=== PATIENT | female | born 1950 | race Caucasian/White ===

== ENCOUNTER 2022-01-31 13:40 | Outpatient (CLI) | payer MEDICARE, SELFPAY ==
--- NOTE | ~2022-01-31 | XR_ITS ---
EXAMINATION: XR hip BI wo pelvis INDICATION: Bilateral hip pain TECHNIQUE: Two views of each hip are obtained. COMPARISON: None available FINDINGS: Bone alignment is normal. There is no fracture. The soft tissues are unremarkable. IMPRESSION: 1. Unremarkable hip radiographs. Reviewed, dictated and finalized at location B.
--- NOTE | ~2022-01-31 | XR_ITS ---
EXAMINATION: XR ankle LT min 3V DATE: 01/31/2022 14:14 INDICATION: Left ankle pain TECHNIQUE: Anteroposterior, lateral, mortise, and additional oblique view of the ankle were obtained. COMPARISON: None. FINDINGS: Bone alignment is normal. There is no fracture or osteochondral lesion. 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 Posterior and plantar calcaneal enthesophytes are noted. IMPRESSION: 1. No acute osseous abnormality. Reviewed, dictated and finalized at location B.
== END 2022-01-31 13:41 | disposition home or self-care (01) ==
LOC: ANHIMG 13:54
PROVIDERS: PCP Emergency Medicine; Visit Provider Emergency Medicine
DX: M25.551 Pain in right hip (principal); M25.552 Pain in left hip; M25.572 Pain in left ankle and joints of left foot; Z13.820 Encounter for screening for osteoporosis
CPT/HCPCS: 73521; 73610

== ENCOUNTER → 2022-04-28 10:28 | Outpatient (CLI) | payer MEDICARE, SELFPAY ==
--- NOTE | ~2022-04-28 | MM_ITS ---
EXAMINATION: MM screening ambika BI w kenny HISTORY: Screening mammogram TECHNIQUE: Craniocaudal and mediolateral oblique 3-D tomosynthesis images were obtained and synthetic 2-D images were generated. CAD analysis was submitted and interpreted. COMPARISON: No prior mammogram is available for comparison at this institution. BREAST PARENCHYMAL COMPOSITION: The breasts are almost entirely fatty. FINDINGS 4 mm asymmetric circumscribed opacity in the lower mid right breast. Diagnostic right mammog [place] and right breast ultrasound examination are recommended Otherwise there is no evidence of suspicious mass, calcification, or architectural distortion to sugg est malignancy in either breast. There has been no suspicious interval change. IMPRESSION: 1. 4 mm circumscribed opacity at 6:00, right breast 2. Diagnostic right mammogram and right breast ultrasound examination are recommended BI-RADS Category 0: Incomplete: Needs additional imaging evaluation. Reviewed, dictated and finalized at location A. CH STEWARD IMPRESSION: 1. 4 mm circumscribed opacity at 6:00, right breast 2. Diagnostic right mammogram and right breast ultrasound examination are recom mended BI-RADS Category 0: Incomplete: Needs additional imaging evaluation.
== END ==
PROVIDERS: PCP Emergency Medicine; Visit Provider Emergency Medicine
DX: Z12.31 Encounter for screening mammogram for malignant neoplasm of breast (principal); R92.8 Other abnormal and inconclusive findings on diagnostic imaging of breast
CPT/HCPCS: 77063; 77067

== ENCOUNTER → 2022-05-21 09:44 | Outpatient (CLI) | payer MEDICARE, SELFPAY ==
--- NOTE | ~2022-05-21 | MMUS_ITS ---
EXAMINATION: MM diagnostic ambika RT w kenny, US breast RT limited HISTORY: Follow-up right breast mass TECHNIQUE: Additional 3-D tomosynthesis images of the right breast were performed and synthetic 2-D i mages were generated. CAD analysis was submitted and interpreted. High resolution Limited right breas t ultrasound was performed. COMPARISON: 04/28/2022 BREAST PARENCHYMAL COMPOSITION: Breast composition is almost entirely fatty. FINDINGS: MAMMOGRAPHIC FINDINGS: There is a persistent 4 mm mass in the lower central aspect of the right breast. No suspicious calcif ications or architectural distortion. ULTRASOUND: Limited right breast ultrasound: At C6-7 o'clock, 4 cm from the nipple, there is an oval hypoechoic 4 mm mass with posterior shadowing, parallel orientation and no internal vascularity. IMPRESSION: 1. Right breast mass at C6-7 o'clock, 4 cm from the nipple measuring 4 mm. 2. Ultrasound-guided right breast biopsy recommended. BI-RADS category 4, suspicious findings. Reviewed, dictated and finalized at location B. COACH IMPRESSION: 1. Right breast mass at C6-7 o'clock, 4 cm from the nipple measuring 4 mm. 2. Ultrasound-guided right breast biopsy recommended. BI-RADS category 4, suspicious findings.
== END ==
PROVIDERS: PCP Emergency Medicine; Visit Provider Emergency Medicine
DX: R92.8 Other abnormal and inconclusive findings on diagnostic imaging of breast (principal)
CPT/HCPCS: 76642; 77061; 77065; G0279

== ENCOUNTER 2022-06-16 10:19 | Outpatient (CLI) | payer MEDICARE, SELFPAY ==
--- NOTE | ~2022-06-16 | US_ITS ---
US breast RT limited DATE: 06/16/2022 11:14 INDICATION: Patient presented for biopsy of right breast mass TECHNIQUE: Real-time imaging targeted at 6 7 7:00 4 cm from nipple COMPARISON: 05/2022 Limited right breast ultrasound and 05/21/2022 diagnostic right mammogram FINDINGS: Approximately 2.6 x 4 mm circumscribed mammographic opacity in the lower outer left breast on 05/21/2022 diagnostic mammogram corresponds to an approximately 2.4 x 4.7 x 4.1 mm parallel circum scribed hypoechoic lesion on 06/16/2022 targeted ultrasound examination at 6 7 7:00 4 cm from nipple. On both the mammogram and ultrasound the margins are smooth. There is homogeneous low density mammogr aphic attenuation and homogeneous solid sonographic echogenicity. No internal vascularity or posterio r shadowing is noted. The mammographic and sonographic features are most suggestive of benign process . The patient was not aware of any recent mammogram examinations that could be compared to the current studies. I recommended 6 month follow-up diagnostic right mammogram and targeted right breast ultrasound based upon the benign mammographic and ultrasound features. The patient agreed to return for follow-up rosy ging in 6 months. IMPRESSION: BI-RADS Category 3: Probably benign finding Recommendation: 6 month diagnostic right mammogram and targeted right breast 6 7 7:00 ultrasound exam ination Reviewed, dictated and finalized at Location A. Reviewed, dictated and finalized at location A. BPM ARCHITECT IMPRESSION: BI-RADS Category 3: Probably benign finding Recommendation: 6 month diagnostic right mammogram and targeted right breast 6 7 7:00 ultrasound examination
== END 2022-06-16 10:20 | disposition home or self-care (01) ==
PROVIDERS: PCP Emergency Medicine; Visit Provider Emergency Medicine
DX: R92.8 Other abnormal and inconclusive findings on diagnostic imaging of breast (principal)
CPT/HCPCS: 76642

== ENCOUNTER → 2023-07-09 10:51 | Outpatient (CLI) | payer MEDICARE, SELFPAY ==
--- NOTE | ~2023-07-09 | MMUS_ITS ---
EXAMINATION: MM diagnostic ambika BI w kenny, US breast RT limited HISTORY: Follow-up right breast mass TECHNIQUE: Additional 3-D tomosynthesis images of the right breast were performed and synthetic 2-D i mages were generated. CAD analysis was submitted and interpreted. High resolution Limited right breas t ultrasound was performed. COMPARISON: Comparison to multiple prior studies sequentially, with oldest reviewed study dated 04/09. BREAST PARENCHYMAL COMPOSITION: Not dense: There are scattered areas of fibroglandular density. FINDINGS: MAMMOGRAPHIC FINDINGS: Stable small circumscribed mass lower central right breast, middle third. The left breast is stable w ithout evidence for malignancy. ULTRASOUND: Limited right breast ultrasound: Stable oval circumscribed parallel oriented hypoechoic mass at 6-7:0 0, 4 cm from the nipple measuring 4 mm. No significant interval change. IMPRESSION: 1. Stable likely benign right breast mass at C6-7 o'clock, 4 cm from the nipple measuring 4 mm. 2. Recommend 6 month follow-up Limited right breast ultrasound BI-RADS category 3, probably benign findings. Reviewed, dictated and finalized at location A. RUMENT AND ELECTRICAL TECHNICIAN IMPRESSION: 1. Stable likely benign right breast mass at C6-7 o'clock, 4 cm from the nipple measuring 4 mm. 2. Recommend 6 month follow-up Limited right breast ultrasound BI-RADS category 3, probably benign findings.
--- NOTE | ~2023-07-09 | XR_ITS ---
XR chest 2V DATE: 07/09/2023 11:56 INDICATION: Tobacco use TECHNIQUE: 2 views COMPARISON: None FINDINGS: Borderline heart size. No hilar or mediastinal enlargement. Left upper lobe calcified pulmo nary granulomas. No pulmonary infiltrate or consolidation, pleural effusion or pulmonary vascular con gestion or pneumothorax is detected. Diffuse osteopenia. Degenerative spurring of the lower thoracic spine. IMPRESSION: Borderline heart size; no active pulmonary disease Reviewed, dictated and finalized at location L. RY PLANT OPERATOR
== END ==
PROVIDERS: PCP Emergency Medicine; Visit Provider Emergency Medicine
DX: R92.8 Other abnormal and inconclusive findings on diagnostic imaging of breast (principal)
CPT/HCPCS: 71046; 76642; 77062; 77066; G0279

== ENCOUNTER 2023-11-23 11:42 | Emergency (ER) | payer MEDICARE, SELFPAY ==
[2023-11-23] VITALS (9 sets, daily range): BP systolic 132–168; BP diastolic 61–86; PULSE 61–82; RESP 16–24; TEMP 36.4–36.7; O2SAT 97–99
--- NOTE | ~2023-11-23 | XR_ITS ---
EXAMINATION: XR chest 2V DATE: 11/23/2023 12:27 INDICATION: Shortness of breath. Intermittent chest pain. TECHNIQUE: frontal and lateral views of the chest were obtained. COMPARISON: Chest radiograph dated 07/09/2023 FINDINGS: Calcified nodule at the lateral left upper lung zone consistent with old granulomatous disease. No ot her airspace opacities, pulmonary edema, pleural effusion or pneumothorax. The cardiomediastinal silh ouette is normal. Moderate thoracic spondylosis. IMPRESSION: 1. No acute cardiopulmonary disease. Reviewed, dictated and finalized at location A.
--- NOTE | ~2023-11-23 | CT_ITS ---
CTA chest PE protocol Ordering provider: Yuliana Villasenor MD History: 73 years Female with . sob, elevated d dimer . Comparison: None. Technique: CT angiogram chest was performed following timed intravenous injection of contrast. Thin s lice axial images and reformatted coronal images were obtained. Three dimensional reformatted images of the chest were also obtained using a [employer] workstation. Radiation reduction technique utilized. D LP L is 814.50 mGy. Findings: PULMONARY ARTERIES: No pulmonary embolus. VISUALIZED THORACIC INLET: Normal. MEDIASTINUM: Aorta/coronary arteries: Mild atheromatous disease. Heart/other: The heart is not enlarged. Lymph nodes: No mediastinal or hilar adenopathy. LUNGS: Tiny nodule seen in the right apical area measuring 5 mm. Tiny nodule in the right lower lobe measuri ng 3 mm. Atelectatic changes in the lingula. No pulmonary nodules or masses. No infiltrates or effusi ons. No pneumothorax. VISUALIZED UPPER ABDOMEN: Left adrenal mass measuring 1.7 x 3 cm. Further evaluation advised. Otherwi se, the visualized upper abdomen is normal. MUSCULOSKELETAL: Soft tissues: The superficial soft tissues are normal. Bones: Age appropriate degenerative changes of the spine. Hemangioma in T10. IMPRESSION: 1. No pulmonary embolism. 2. Tiny nodule in the right apical area. [address] follow-up advised. 3. Left adrenal mass. Further evaluation advised. Reviewed, dictated and finalized at location A.
--- NOTE | 2023-11-23 11:55 | ECG_ITS ---
Test Date: 2023-11-23 11:59:51 Measurements Intervals [place] Rate: 77 P: 57 MN: 167 QRS: 26 QRSD: 88 T: 63 QT: 398 QTc: 452 Interpretive Statements SINUS RHYTHM NONSPECIFIC ST SEGMENT ABNORMALITY ABNORMAL ECG No previous ECG available for comparison Electronically Signed On 11-23-2023 15:27:48 CDT by Alex Ramirez M.D.
[2023-11-23 12:32] LABS: Basophils Absolute Auto 0.1 K/mm3 (0.0-0.1); Basophils Percent Auto 0.9 % (0.2-1.2); Eosinophils Absolute Auto 0.4 K/mm3 (0-0.3); Eosinophils Percent Auto 4.4 % (0-4.4); Hematocrit 39.4 % (37.0-47.0); Hemoglobin 13.3 g/dL (12.0-15.0); Immature Granulocyte Absolute 0.05 K/mm3 (0.00-0.031); Immature Granulocyte Percent A 0.5 % (0-0.5); Lymphocytes Absolute Auto 1.23 K/mm3 (0.9-3.2); Lymphocytes Percent Auto 12.2 % (18.3-44.2); Mean Corpuscular HGB Conc 33.8 g/dl (32-36); Mean Corpuscular Hemoglobin 29.5 pg (26-34); Mean Corpuscular Volume 87.4 fl (80-100); Mean Platelet Volume 10.9 fl (7.4-10.4); Monocytes Absolute Auto 0.6 K/mm3 (0.1-0.6); Neutrophils Absolute Auto 7.7 K/mm3 (1.3-6.7); Platelet Count Result 343 k/mm3 (150-375); Red Blood Count 4.51 M/mm3 (4.2-5.4); Red Cell Distribution Width 14.1 % (11.5-14.5); White Blood Count 10.1 K/mm3 (4.5-10.0)
[2023-11-23 12:44] LABS: Alanine Aminotransferase 31 U/L (6-35); Alkaline Phosphatase 124 U/L (38-126); Anion Gap 6 mmol/L (4-12); Aspartate Amino Transferase 30 U/L (14-36); Bilirubin,Total 0.7 mg/dL (0.2-1.3); Blood Urea Nitrogen 14 mg/dL (7-17); Calcium 8.7 mg/dL (8.4-10.2); Carbon Dioxide 27 mmol/L (22-30); Chloride 107 mmol/L (98-107); Estimated CRCL calculation 68 ml/min; Estimated Glomerular Filt Rate > 60; Glucose 148 mg/dL (65-110); Potassium 3.2 mmol/L (3.4-5.0); Sodium 140 mmol/L (137-145)
[2023-11-23] MEDS: POTASSIUM CHLORIDE 20 MEQ ER TABLET 40 MEQ PO (12:55)
[2023-11-23] MEDS: predniSONE 20 MG TABLET 60 MG PO (12:56)
[2023-11-23 13:07] LABS: INR 1.1; Prothrombin Time 14.6 Seconds (11.1-14.7)
[2023-11-23 13:08] LABS: Partial Thromboplastin Time 28.2 Seconds (22.3-36.8)
[2023-11-23 13:09] LABS: Alveolar/Arterial O2 Gradient 17.9 mmHg; Base Excess ABG 2.6 mEq/l (+/-2.0); Carboxyhemoglobin 2.8 % THb (0-2.0); Fractional Inspired Oxygen 21 %; HCO3 ABG 26.6 mEq/l (22.0-26.0); Methemoglobin ABG 0.2 %THb (0-1.5); Oxygen Content ABG 19.3 %vol (16.0-22.0); Oxygen Saturation ABG 96.8 % (95.0-100.0); Oxyhemoglobin 94.2 % THb (90.0-100.0); PCO2 ABG 39.1 mmHg (35.0-45.0); PO2 FiO2 Ratio Arterial Blood 4.05 %; Reduced Hemoglobin 2.8 %THb (0-5.0); Total Hemoglobin 14.5 g/dL (12.0-18.0); pH ABG 7.451 (7.350-7.450)
[2023-11-23] MEDS: IPRATROPIUM 0.5 MG/ALBUTEROL SULFATE 2.5 MG AMPUL.NEB 3 ML INHALATION (13:16)
[2023-11-23 13:20] LABS: Device ROOM AIR; Modified Allen's Test Pass; Site Drawn RIGHT RADIAL
--- NOTE | 2023-11-23 13:21 | ED.SOB ---
HPI - SOB/Dyspnea General Chief Complaint: Shortness of Breath/Dyspnea Stated Complaint: SOB x 2 weeks Time Seen by Provider: 11/23/23 12:08 Source: patient, RN notes reviewed and old records reviewed Mode of arrival: ambulatory Limitations: no limitations History of Present Illness HPI Narrative: This is a 73 year old female with history of COPD who presents for evaluation of shortness of breath. She states she has been having difficulty breathing for 2 weeks. She reports nonproductive cough with wheezing and congestion. She also reports shortness of breath working with exertion. She reports feeling like she was going to pass out walking the bathroom at her home due to sob. She denies vomiting, diarrhea, fever, chills. She does reports bilateral leg swelling. Denies heart disease. She reports having normal cardiac evaluation 4 years ago. Related Data Allergies Allergy/AdvReac Type Severity Reaction Status Date / Time No Known Allergies Allergy Mild Unverified 07/04/19 16:14 Review of Systems Constitutional: Constitutional: Denies fever(s) and Reports weakness Cardiovascular: Cardiovascular: Reports chest pain, Denies syncope, Denies rapid heart rate, Denies irregular heart rhythm, Reports leg edema and Reports dyspnea Respiratory: Respiratory: Reports chest congestion, Reports cough, Denies hemoptysis, Denies excessive phlegm production, Reports dyspnea and Reports wheezing Gastrointestinal: Gastrointestinal: Denies abdominal pain, Denies hematochezia, Denies diarrhea and Denies vomiting Genitourinary: Genitourinary: Denies hematuria and Denies dysuria Musculoskeletal: Musculoskeletal: Reports arthralgias, Denies joint swelling, Denies loss of height and Denies muscle weakness Neurologic: Denies syncope, Denies focal weakness and Denies weakness [facility] Past Medical History Medical History (Updated 11/23/23 @ 16:13 by Yuliana Villasenor MD) Emphysema/COPD Hypertension Surgical History Surgical History (Updated 11/23/23 @ 13:23 by Yuliana Villasenor MD) H/O: hysterectomy History of cholecystectomy Family History Family History (System 07/04/19 @ 16:14 by Alyce Armenta) Mother Family history of heart disease in male family member before age 55 Social History Social History (Updated 11/23/23 @ 13:23 by Yuliana Villasenor MD) Smoking packs per day: 0.5 Smoking cigarettes per day: 10.0 Smoking status: Current every day smoker Alcohol intake: current Exam Const: General: no acute distress and alert Nutritional Appearance: well nourished Orientation/consciousness: patient oriented x3 HENMT: Head: normal to inspection Face and sinus: normal facial exam Eyes: EOM: EOMs intact bilaterally Chest: Chest palpation & inspection: normal inspection of the chest Resp: Effort & Inspection: normal respiratory effort Auscultation: wheezes Other: able to speak in complete sentences Cardio: Rate: regular rate Rhythm: regular rhythm Heart sounds: no murmurs GI: GI Palp: Yes Soft to palpation, No Tenderness to palpation present (GI), No Guarding due to palpation present (GI) and No Rigid due to palpation Auscultation: normal bowel sounds Skin: General skin exam: normal color Wounds: no wounds Neuro: General: patient oriented x3, moves all extremities and CN's II-XI intact bilaterally Extrem: General: edema Psych: Mental Status: mental status grossly normal Affect: normal affect Attitude: cooperative Course Reevaluation(s) Reevaluation #1: Patient states she feels much better. She was able to ambulate without any difficulty. Pulse ox was 96% with ambulation. Patient understands and she is comfortable with discharge with oral prednisone and albuterol inhaler. Date: 11/23/23 Time: 16:11 Vital Signs Vital signs: Vital Signs Temperature 97.6 F 11/23/23 11:55 Pulse Rate 78 11/23/23 11:55 Respiratory Rate 24 H 11/23/23 11:55 Blood Pressure 168/76 H 11/23/23 11:55
[2023-11-23 13:34] LABS: NT Pro B Type Natriuretic Pept 721 pg/mL (19.9-100); Troponin I < 0.012 ng/mL (0.000-0.034)
[2023-11-23 14:28] LABS: D Dimer 0.78 ug/mL (<0.48)
== END 2023-11-23 16:29 | disposition home or self-care (01) ==
PROVIDERS: Emergency Medicine; Emergency Provider General Practice; PCP Emergency Medicine
DX: J44.1 Chronic obstructive pulmonary disease with (acute) exacerbation (principal); I10 Essential (primary) hypertension
CPT/HCPCS: 36415; 36600; 71046; 71275; 80053; 82375; 82805; 83050; 83880; 84484; 85025; 85380; 85610; 85730; 93005; 94640; 99284; A9270; J7512; Q9967

== ENCOUNTER 2025-01-16 12:37 | Outpatient (CLI) | payer MEDICARE, SELFPAY ==
--- NOTE | ~2025-01-16 | XR_ITS ---
XR hand LT min 3V 01/16/2025 15:19 Indication: Wheezing and hand pain Procedure: 3 views left hand Comparison: No prior studies for comparison. Findings: There is polyarticular osteoarthritis of the left wrist and hands. No fracture, subluxation or dislocation. Osteopenia. No focal soft tissue abnormality. No foreign bodies. Impression: 1: No acute bone or joint abnormality. 2: Polyarticular osteoarthritis. Reviewed, dictated and finalized at location A. Impression: 1: No acute bone or joint abnormality. 2: Polyarticular osteoarthritis.
--- NOTE | ~2025-01-16 | XR_ITS ---
CHEST RADIOGRAPH, PA AND LATERAL CLINICAL HISTORY: Wheezing, hand PAIN . COMPARISON: 11/23/2023 TECHNIQUE: PA and lateral views of the chest. FINDINGS The cardiomediastinal silhouette is unremarkable. Redemonstration of two calcified granulomas within the left upper lobe. The remainder of the lungs are clear. IMPRESSION: No focal infiltrate or effusion. Reviewed, dictated and finalized at location A.
--- NOTE | ~2025-01-16 | XR_ITS ---
HISTORY: WHEEZING,HAND PAIN COMPARISON: None TECHNIQUE: 3 views of the cervical spine were performed FINDINGS: Visualization of the cervical spine to the inferior endplate of T2 (on swimmer's view). Normal curvature of the cervical spine is preserved. No prevertebral soft tissue swelling is appreciated. No acute compression fracture is noted. The dens is equidistant between the pillars, without asymmetry. Air column within the trachea is midline. The visualized portions of the bilateral upper lung ybarra are unremarkable. IMPRESSION: Unremarkable plain film evaluation of the cervical spine, as detailed above. Reviewed, dictated and finalized at location A.
--- NOTE | ~2025-01-16 | XR_ITS ---
XR lumbar spine 2-3V 01/16/2025 15:19 Indication: Back pain. Procedure: 3 views lumbar spine Comparison: No prior studies for comparison. Findings: There is facet hypertrophy at L4-5 and L5-S1. There is mild endplate degenerative change at L4-5. No acute fracture, subluxation or dislocation. Normal lumbar alignment. Pedicles intact. Sacra l foramen are symmetric. There are cholecystectomy clips. Impression: 1: Mild lumbar spondylosis. Reviewed, dictated and finalized at location A. Impression: 1: Mild lumbar spondylosis.
--- NOTE | ~2025-01-16 | XR_ITS ---
XR hip LT min 2V 01/16/2025 15:19 Indication: Left hip pain Procedure: 2 views left hip Comparison: 01/31/2022 Findings: There is anatomic alignment. No fracture, subluxation or dislocation. Normal mineralization . Impression: 1: No significant bone or joint abnormality. Reviewed, dictated and finalized at location A. Impression: 1: No significant bone or joint abnormality.
--- NOTE | ~2025-01-16 | XR_ITS ---
XR forearm LT 2V, XR wrist LT min 3V 01/16/2025 15:19 Indication: Left arm pain Procedure: 2 views left forearm and 4 views left wrist Comparison: No prior studies for comparison. Findings: No acute fracture, subluxation or dislocation. Left elbow in anatomic alignment. There is p olyarticular osteoarthritis of the wrist involving the triscaphe and first carpal metacarpal joints. No significant focal soft tissue abnormality. No foreign bodies. Impression: 1: No acute bone or joint abnormality. 2: Polyarticular osteoarthritis of the left wrist. Reviewed, dictated and finalized at location A. Impression: 1: No acute bone or joint abnormality. 2: Polyarticular osteoarthritis of the left wrist. Impression: 1: No acute bone or joint abnormality. 2: Polyarticular osteoarthritis of the left wrist.
--- NOTE | 2025-01-16 13:55 | CY_PTH ---
PATIENT: Martha Wright LOC: [facility] U#:[id number] AGE/SX: 74/F ROOM: RE01/16/[address]: Pawan Gomes MD : 1950 BED: DIS: 01/16/2025 SPEC #: [id number] RECD: 01/17/25 07:17 STATUS: BRYANT REAgustin #: [id number] [place]: 01/16/25 13:[address]: Pawan Gomes DEPT: [facility] Cytology RECD BY: Gayla Barrett Tissues: A - Urine Procedures: Cytopathology Cytospin
[2025-01-16 14:35] LABS: Hematocrit 45.3 % (37.0-47.0); Hemoglobin 14.5 g/dL (12.0-15.0); Mean Corpuscular HGB Conc 32.0 g/dl (32-36); Mean Corpuscular Hemoglobin 28.8 pg (26-34); Mean Corpuscular Volume 89.9 fl (80-100); Platelet Count Result 375 k/mm3 (150-375); Red Blood Count 5.04 M/mm3 (4.2-5.4); White Blood Count 17.2 K/mm3 (4.5-10.0)
[2025-01-16 14:59] LABS: Alanine Aminotransferase 33 U/L (6-35); Albumin Level 4.2 g/dL (3.5-5.1); Alkaline Phosphatase 133 U/L (38-126); Anion Gap 9 mmol/L (4-12); Aspartate Amino Transferase 32 U/L (14-36); Bilirubin,Total 0.7 mg/dL (0.2-1.3); Blood Urea Nitrogen 23 mg/dL (7-17); Calcium 8.8 mg/dL (8.4-10.2); Carbon Dioxide 24 mmol/L (22-30); Chloride 103 mmol/L (98-107); Cholesterol 229 mg/dL (0-200); Estimated Glomerular Filt Rate > 60; Glucose 119 mg/dL (65-110); HDL Direct 65 mg/dL; Potassium 4.4 mmol/L (3.4-5.0); Sodium 136 mmol/L (137-145); Total Protein 7.8 g/dL (6.3-8.2); Triglycerides 98 mg/dL (<150)
[2025-01-16 15:04] LABS: NT Pro B Type Natriuretic Pept 381 pg/mL (19.9-100)
[2025-01-16 15:13] LABS: Free T4 Free Thyroxine 1.02 ng/dL (0.78-2.19)
[2025-01-16 15:26] LABS: Thyroid Stimulating Hormone 2.430 uIU/mL (0.465-4.680)
[2025-01-16 15:48] LABS: Add Urine Microscopic? YES; Appearance Urine Clear (Clear); Glucose Urine UA Negative (Negative); Leukocyte Esterase Ur Negative LEU/UL (Negative); Nitrate Urine Negative (Negative); Non Pathogenic Casts 0-2; Specific Grav Ur 1.019 (1.001-1.035)
[2025-01-16 16:38] LABS: MALB Creatinine Ratio 42.9 mg/g (0-30)
== END 2025-01-16 12:38 | disposition home or self-care (01) ==
PROVIDERS: PCP Emergency Medicine; Visit Provider Emergency Medicine
DX: E78.5 Hyperlipidemia, unspecified (principal); I10 Essential (primary) hypertension; J44.0 Chronic obstructive pulmonary disease with (acute) lower respiratory infection; M25.532 Pain in left wrist; M79.642 Pain in left hand; R06.2 Wheezing; R31.9 Hematuria, unspecified; Z00.00 Encounter for general adult medical examination without abnormal findings; J44.9 Chronic obstructive pulmonary disease, unspecified; R73.03 Prediabetes; M19.042 Primary osteoarthritis, left hand; M19.032 Primary osteoarthritis, left wrist; M47.896 Other spondylosis, lumbar region
CPT/HCPCS: 36415; 71046; 72040; 72100; 73090; 73110; 73130; 73502; 80053; 80061; 81001; 82043; 83880; 84439; 84443; 85027; 88108